=== PATIENT | female | born 2000 | race Caucasian/White ===

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

== ENCOUNTER 2021-01-30 16:05 | Emergency (ER) | payer MEDICAID ==
[~2021-01-30] VITALS: Ht 172.7 cm; Wt 56.8 kg
[2021-01-30 16:21] VITALS: BP 100/54
== END 2021-01-30 23:15 | disposition left against medical advice (07) ==
LOC: ER 16:05
DX: R07.9 Chest pain, unspecified (principal); Z53.21 Procedure and treatment not carried out due to patient leaving prior to being seen by health care provider
CPT/HCPCS: 93005

== ENCOUNTER 2021-04-19 09:28 | Outpatient (CLI) | payer MEDICAID ==
[2021-04-19] VITALS (11 sets, daily range): BP systolic 102–136; BP diastolic 55–102
== END 2021-04-19 23:59 | disposition home or self-care (01) ==
LOC: CARD DIAG 09:28
PROVIDERS: ATTEND Internal Medicine Cardiovascular Disease
DX: R42 Dizziness and giddiness (principal)
CPT/HCPCS: 93660